=== PATIENT | female | born 1980 | race Caucasian/White ===

== ENCOUNTER 2016-04-02 17:02 | Emergency (ER) | payer BC, OTHER ==
--- NOTE | 2016-04-02 17:37 | EDDOCDS ---
Physician Documentation Name: Eva Bryant Age: 35 yrs Sex: Female : 1980 Arrival Date: 04/02/2016 Time: 17:02 Bed TR1 Private MD: NO PRIMARY PHYSICIAN, . Disposition: 04/02/16 17:23 Discharged to Home/Self Care. Impression: Cutaneous abscess of buttock - right medial. - Condition is Stable. - Discharge Instructions: Abscess, [id number]. - Medication Reconciliation, Local Pharmacy Hours form. - Follow up: Yovani Donohue DO; When: Call to arrange an appointment; Reason: Wound/Symptom Recheck, Further diagnostic work-up, Recheck today's complaints, Continuance of care. - Problem is an ongoing problem. - Symptoms are unchanged. Historical: - Allergies: no known allergies; - Home Meds: 1. none - PMHx: none; - PSHx: ; - Social history: Smoking status: Patient states was never smoker of tobacco. No barriers to communication noted, The patient speaks fluent Slovak, Speaks appropriately for age. - Family history: Not pertinent. - : The pt / caregiver states he / she is not on anticoagulants. Home medication list is obtained from the patient. - Exposure Risk Screening:: None identified. 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 7 in. (170.18 cm) (R); 17:04 Body Mass Index 40.72 (117.93 kg, 170.18 cm) dd6 Signatures: Dede Landaverde, RN RN Rodo Potter PA PA btw Sweeney, Julia, RN RN [email or web address] MTDD
--- NOTE | 2016-04-02 17:38 | EDDOCDS ---
Nurse's Notes [facility] Name: Eva Bryant Age: 35 yrs Sex: Female : 1980 Arrival Date: 04/02/2016 Time: 17:02 Bed TR1 Private MD: NO PRIMARY PHYSICIAN, . Diagnosis: Cutaneous abscess of buttock-right medial Presentation: 04/02 17:08 Presenting complaint: Patient states: sarah anal abscesses- was lanced by dr bartlett, srm given antibiotics but it returned a few weeks later. given more antibiotics. it returned on and PA from [facility] sent her here- abscess is draining on its own. Adult Sepsis Screening: The patient does not have new or worsening altered mentation. Patient's respiratory rate is less than 22. Systolic blood pressure is greater than 100. Patient has a qSOFA score of 0- Negative Sepsis Screen. Suicide/Homicide risk assessment- the patient denies having any suicidal and/or homicidal ideations and does not present with any other emotional, behavioral or mental health complaints. 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 Transition of care: Patient was received from [facility] [place]. 17:08 Acuity: PAOLA Level 4 srm 17:08 Method Of Arrival: Walkin/Carried/Asstd srm Triage Assessment: 17:10 General: Appears in no apparent distress, Behavior is appropriate for age, cooperative. srm Pain: Pain currently is 1 out of 10 on a pain scale. HIV screening NA for this visit Offered previously. 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 none - PMHx: none; - PSHx: ; - Social history: Smoking status: Patient states was never smoker of tobacco. No barriers to communication noted, The patient speaks fluent Greenlandic, Speaks appropriately for age. - Family history: Not pertinent. - : The pt / caregiver states he / she is not on anticoagulants. Home medication list is obtained from the patient. - Exposure Risk Screening:: None identified. Screenin:20 Screening information is obtained from the patient. Fall risk: No risks identified. srm Assistance ADL's: requires no assistance with activities of daily living. Abuse/DV Screen: The patient / caregiver reports he/she is: not in a situation that causes fear, pain or injury. Nutritional screening: No deficits noted. Advance Directives: There is no active DNR order. home support is adequate. Assessment: 17:20 General: Appears in no apparent distress, Behavior is appropriate for age, cooperative. srm Neurological: No deficits noted. Derm: open wound to inner aspect right buttock. scant serous drainage noted on ABD pad. Vital Signs: 17:04 BP 155 / 78; Pulse 97; Resp 18 S; Temp 98.0(O); Pulse Ox 100% on R/A; Weight 117.93 kg dd6 (R); Height 5 ft. 7 in. (170.18 cm) (R); 17:04 Body Mass Index 40.72 (117.93 kg, 170.18 cm) dd6 Vitals: 17:04 Log In Time: April 02, 2016 at 17:02. dd6 ED Course: 17:04 Patient visited by Lc Su PCA. dd6 17:04 NO PRIMARY PHYSICIAN, . is Private Physician. dd6 17:04 Patient moved to Waiting dd6 17:09 Patient moved to Pre RCE dd6 17:10 Triage Initiated srm 17:11 Patient moved to Triage 2 srm 17:12 Rodo Anaya PA is PHCP. btw 17:12 Zaynab Connolly MD is Attending Physician. btw 17:12 Patient visited by Rodo Anaya PA. btw 17:20 The patient / caregiver is instructed regarding the plan of care and ED course. Patient srm has correct armband on for positive identification. 17:22 Patient visited by Dede Landaverde RN. [facility] 17:22 Yovani Donohue DO is Referral Physician. btw 17:34 Patient moved to TR1 js15 17:34 No IV's were initiated during this patient's visit. No procedures done that require js15 assistance. Order Results: There are currently no results for this order. Outcome: 17:23 Discharge ordered by Provider. btw 17:34 Discharge Assessment: Patient awake, alert and oriented x 3. No cognitive and/or js15 functional deficits noted. Patient verbalized understanding of disposition instructions. patient administered narcotics - no. The following High Risk Discharge criteria are identified: None. Discharged to home ambulatory. Condition: unchanged. Discharge instructions given to patient, Instructed on discharge instructions, follow up and referral plans. Demonstrated understanding of instructions, Pt was receptive of discharge instructions/ teaching. No special radiology studies were completed. Property sent home with patient. 17:36 Patient left the ED. js15 Signatures: Dede Landaverde, RN RN Lc Mcfarlane, RETORT KILN BURNER RETORT KILN BURNER dd6 Rodo Anaya PA PA btw Sweeney, Julia,RN RN js15 MTDD
--- NOTE | 2016-04-04 18:36 | EDDOCDS ---
Physician Documentation [facility] Name: Eva Bryant Age: 35 yrs Sex: Female : 1980 Arrival Date: 04/02/2016 Time: 17:02 Bed TR1 Private MD: NO PRIMARY PHYSICIAN, . Disposition: 04/02/16 17:23 Discharged to Home/Self Care. Impression: Cutaneous abscess of buttock - right medial. - Condition is Stable. - Discharge Instructions: Abscess, [id number]. - Medication Reconciliation, Local Pharmacy Hours form. - Follow up: Yovani Donohue DO; When: Call to arrange an appointment; Reason: Wound/Symptom Recheck, Further diagnostic work-up, Recheck today's complaints, Continuance of care. - Problem is an ongoing problem. - Symptoms are unchanged. Historical: - Allergies: no known allergies; - Home Meds: 1. none - PMHx: none; - PSHx: ; - Social history: Smoking status: Patient states was never smoker of tobacco. No barriers to communication noted, The patient speaks fluent [place] Of [place], Speaks appropriately for age. - Family history: Not pertinent. - : The pt / caregiver states he / she is not on anticoagulants. Home medication list is obtained from the patient. - Exposure Risk Screening:: None identified. 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 7 in. (170.18 cm) (R); 17:04 Body Mass Index 40.72 (117.93 kg, 170.18 cm) dd6 MDM: 17:49 [facility] Payment Agreement was scanned into [employer]actually and attached to record. [facility] 17:49 Financial registration complete. [facility] 04/03 07:36 T-Sheet-- Draft Copy was scanned into [employer] and attached to record. [facility] Signatures: Dede Landaverde RN Rodo Bashir PA PA btw Sweeney, Julia, RN RN js15 Beck, Gabriela gjb Hoffert, Sarah seh The chart was reviewed and I authenticate all verbal orders and agree with the evaluation and treatment provided.Attachments: 04/02 17:49 [facility] Payment Agreement gjb 04/03 07:36 T-Sheet-- Draft Copy carisa Chart Complete MTDD
--- NOTE | 2016-04-04 18:37 | EDDOCDS ---
Nurse's Notes [facility] Name: Eva Bryant Age: 35 yrs Sex: Female : 1980 Arrival Date: 04/02/2016 Time: 17:02 Bed TR1 Private MD: NO PRIMARY PHYSICIAN, . Diagnosis: Cutaneous abscess of buttock-right medial Presentation: 04/02 17:08 Presenting complaint: Patient states: sarah anal abscesses- was lanced by dr bartlett, srm given antibiotics but it returned a few weeks later. given more antibiotics. it returned on and PA from [facility] sent her here- abscess is draining on its own. Adult Sepsis Screening: The patient does not have new or worsening altered mentation. Patient's respiratory rate is less than 22. Systolic blood pressure is greater than 100. Patient has a qSOFA score of 0- Negative Sepsis Screen. Suicide/Homicide risk assessment- the patient denies having any suicidal and/or homicidal ideations and does not present with any other emotional, behavioral or mental health complaints. 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 Transition of care: Patient was received from [facility] Urgent [facility]. 17:08 Acuity: PAOLA Level 4 srm 17:08 Method Of Arrival: Walkin/Carried/Asstd srm Triage Assessment: 17:10 General: Appears in no apparent distress, Behavior is appropriate for age, cooperative. srm Pain: Pain currently is 1 out of 10 on a pain scale. HIV screening NA for this visit Offered previously. 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 none - PMHx: none; - PSHx: ; - Social history: Smoking status: Patient states was never smoker of tobacco. No barriers to communication noted, The patient speaks fluent Croatian, Speaks appropriately for age. - Family history: Not pertinent. - : The pt / caregiver states he / she is not on anticoagulants. Home medication list is obtained from the patient. - Exposure Risk Screening:: None identified. Screenin:20 Screening information is obtained from the patient. Fall risk: No risks identified. srm Assistance ADL's: requires no assistance with activities of daily living. Abuse/DV Screen: The patient / caregiver reports he/she is: not in a situation that causes fear, pain or injury. Nutritional screening: No deficits noted. Advance Directives: There is no active DNR order. home support is adequate. Assessment: 17:20 General: Appears in no apparent distress, Behavior is appropriate for age, cooperative. srm Neurological: No deficits noted. Derm: open wound to inner aspect right buttock. scant serous drainage noted on ABD pad. Vital Signs: 17:04 BP 155 / 78; Pulse 97; Resp 18 S; Temp 98.0(O); Pulse Ox 100% on R/A; Weight 117.93 kg dd6 (R); Height 5 ft. 7 in. (170.18 cm) (R); 17:04 Body Mass Index 40.72 (117.93 kg, 170.18 cm) dd6 Vitals: 17:04 Log In Time: April 02, 2016 at 17:02. dd6 ED Course: 17:04 Patient visited by Lc Su PCA. dd6 17:04 NO PRIMARY PHYSICIAN, . is Private Physician. dd6 17:04 Patient moved to Waiting dd6 17:09 Patient moved to Pre RCE dd6 17:10 Triage Initiated srm 17:11 Patient moved to Triage 2 srm 17:12 Rodo Anaya PA is PHCP. btw 17:12 Zaynab Connolly MD is Attending Physician. btw 17:12 Patient visited by Rodo Anaya PA. btw 17:20 The patient / caregiver is instructed regarding the plan of care and ED course. Patient srm has correct armband on for positive identification. 17:22 Patient visited by Dede Landaverde RN. srm 17:22 Yovani Donohue DO is Referral Physician. btw 17:34 Patient moved to TR1 js15 17:34 No IV's were initiated during this patient's visit. No procedures done that require js15 assistance. 17:49 [facility] Payment Agreement was scanned into [employer] and attached to record. gjb 04/03 07:36 T-Sheet-- Draft Copy was scanned into [employer] and attached to record. [facility] Order Results: There are currently no results for this order. Outcome: 04/02 17:23 Discharge ordered by Provider. btw 17:34 Discharge Assessment: Patient awake, alert and oriented x 3. No cognitive and/or js15 functional deficits noted. Patient verbalized understanding of disposition instructions. patient administered narcotics - no. The following High Risk Discharge criteria are identified: None. Discharged to home ambulatory. Condition: unchanged. Discharge instructions given to patient, Instructed on discharge instructions, follow up and referral plans. Demonstrated understanding of instructions, Pt was receptive of discharge instructions/ teaching. No special radiology studies were completed. Property sent home with patient. 17:36 Patient left the ED. js15 Signatures: Dede Landaverde, RN RN Lc Mcfarlane, DOCTOR OF CHIROPRACTIC DOCTOR OF CHIROPRACTIC dd6 Rodo Anaya PA PA btw Sweeney, Julia,RN RN js15 Nasrin Segundo Sarah seh Chart Complete MTDKathryn
--- NOTE | 2016-04-04 18:37 | EDDOCDS ---
Physician Documentation [facility] Name: Eva Bryant Age: 35 yrs Sex: Female : 1980 Arrival Date: 04/02/2016 Time: 17:02 Bed TR1 Private MD: NO PRIMARY PHYSICIAN, . Disposition: 04/02/16 17:23 Discharged to Home/Self Care. Impression: Cutaneous abscess of buttock - right medial. - Condition is Stable. - Discharge Instructions: Abscess, [id number]. - Medication Reconciliation, Local Pharmacy Hours form. - Follow up: Yovani Donohue DO; When: Call to arrange an appointment; Reason: Wound/Symptom Recheck, Further diagnostic work-up, Recheck today's complaints, Continuance of care. - Problem is an ongoing problem. - Symptoms are unchanged. Historical: - Allergies: no known allergies; - Home Meds: 1. none - PMHx: none; - PSHx: ; - Social history: Smoking status: Patient states was never smoker of tobacco. No barriers to communication noted, The patient speaks fluent Azerbaijani, Speaks appropriately for age. - Family history: Not pertinent. - : The pt / caregiver states he / she is not on anticoagulants. Home medication list is obtained from the patient. - Exposure Risk Screening:: None identified. 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 7 in. (170.18 cm) (R); 17:04 Body Mass Index 40.72 (117.93 kg, 170.18 cm) dd6 MDM: 17:49 [facility] Payment Agreement was scanned into [employer] and attached to record. [facility] 17:49 Financial registration complete. [facility] 04/03 07:36 T-Sheet-- Draft Copy was scanned into [employer] and attached to record. [facility] Signatures: Dede Landaverde RN Rodo Bashir PA PA btw Sweeney, Julia, RN RN js15 Beck, Gabriela gjb Hoffert, Sarah seh The chart was reviewed and I authenticate all verbal orders and agree with the evaluation and treatment provided.Attachments: 04/02 17:49 [facility] Payment Agreement gjb 04/03 07:36 T-Sheet-- Draft Copy carisa Chart Complete MTDD
== END 2016-04-02 17:36 | disposition home or self-care (01) ==
LOC: M ED 17:02
DX: L02.31 Cutaneous abscess of buttock (principal)

== ENCOUNTER → 2016-04-30 | Day surgery (SDC) | payer BC, OTHER ==
[~2016-04-30] VITALS: Ht 170.2 cm; Wt 117.9 kg
[~2016-04-30] MED LIST: ALLE24TA8 PO; KETOROLAC 60 MG/2 ML VIAL (J1885) As Ordered ONE; LR 1,000 ML IV SCH; MIDAZOLAM INJ 2 MG/2 ML VIAL (J2250) As Ordered ONE; NORCO, ANEXSIA 5/325MG TABLET (HYDROcodone/ACETAMINOPHEN) PO PRN; ONDANSETRON 4MG/2ML VIAL (J2405) As Ordered ONE; ONDANSETRON 4MG/2ML VIAL (J2405) IV PRN; PERCOCET 5MG/325MG TAB As Ordered ONE; PERCOCET 5MG/325MG TAB PO PRN; fentaNYL 100 MCG/2 ML INJECTION (J3010) IV PRN
[2016-04-30 13:47] VITALS: BP 115/80
--- NOTE | 2016-05-01 12:24 | RO ---
DATE OF PROCEDURE: 04/30/2016 PREOPERATIVE DIAGNOSIS: Perirectal abscess. POSTOPERATIVE DIAGNOSIS: Perianal fistula. OPERATIVE PROCEDURE: Rectal exam under anesthesia with fistulotomy. SURGEON: Yovani Donohue DO SALES ADMINISTRATION SPECIALIST: None. ANESTHESIA: Spinal. COMPLICATIONS: None. INDICATIONS FOR PROCEDURE: The patient is a 36-year-old female presents with a recurrent abscess just to the right side of her rectum. It closes for a few days and then returns. Recommendation is to proceed with exam under anesthesia with exploration, possible abscess excision versus fistulotomy versus seton placement. Risks and benefits of the procedure not limited to but including bleeding, infection, need for further surgery and possible incontinence were discussed in detail with the patient. Informed consent was obtained and procedure was planned. DESCRIPTION OF PROCEDURE: The patient was brought back to operating room 8 after sufficient sedation. Spinal was placed. She was then placed in the prone jackknife position. The perirectal area was then sterilely prepped and draped with Betadine. Following that, a time out was done to confirm proper patient and proper procedure. Next a bivalve retractor was placed in the end rectum. The opening just to the right of the anus that was oozing purulent drainage was probed. The probe was passed from the outside and tract was found going all the way in just to the lip of the anus. It was very superficial. The probe was held in place, elevated away from the skin and using #15 blade scalpel, the tract was opened up completely from medial to lateral. Electrocautery was then used to cauterize the fistula tract as well as any bleeding. The wound was then covered with some Xeroform gauze and a 4x4. This was then covered with tape thus ending the procedure. The patient was then taken to post anesthesia care unit (PACU) in stable condition.
== END | disposition home or self-care (01) ==
LOC: M SDC 09:31
PROVIDERS: ATTEND Surgery
DX: K60.3 Anal fistula (principal)
CPT/HCPCS: 46270; J0690; J1885; J2250; J2405

== ENCOUNTER → 2016-09-15 | Outpatient (REF) | payer OTHER ==
[~2016-09-15] MED LIST changes: -KETOROLAC 60 MG/2 ML VIAL (J1885) As Ordered ONE; -LR 1,000 ML IV SCH; -MIDAZOLAM INJ 2 MG/2 ML VIAL (J2250) As Ordered ONE; -NORCO, ANEXSIA 5/325MG TABLET (HYDROcodone/ACETAMINOPHEN) PO PRN; -ONDANSETRON 4MG/2ML VIAL (J2405) As Ordered ONE; -ONDANSETRON 4MG/2ML VIAL (J2405) IV PRN; -PERCOCET 5MG/325MG TAB As Ordered ONE; -PERCOCET 5MG/325MG TAB PO PRN; -fentaNYL 100 MCG/2 ML INJECTION (J3010) IV PRN
== END ==
LOC: M LAB REF 13:35
PROVIDERS: ATTEND Nurse Practitioner Adult Health
DX: E03.9 Hypothyroidism, unspecified (principal)

== ENCOUNTER → 2016-09-30 | Outpatient (REF) | payer OTHER | LOC: M LAB REF 13:23 | PROVIDERS: ATTEND Surgery | DX: D22.5 Melanocytic nevi of trunk (principal) ==

== ENCOUNTER → 2018-01-16 | Outpatient (CLI) | payer BC, OTHER ==
[~2018-01-16] MED LIST changes: -ALLE24TA8 PO; +METHACHOLINE KIT (J7674) INH
== END ==
LOC: M CARPUL 08:55
DX: J45.909 Unspecified asthma, uncomplicated (principal)
CPT/HCPCS: J7674

== ENCOUNTER 2018-01-26 20:09 | Emergency (ER) | payer BC, OTHER ==
[2018-01-26] MEDS: CLINDAMYCIN 150 MG CAP PO (20:39)
== END 2018-01-26 20:46 | disposition home or self-care (01) ==
LOC: M ED 20:09
DX: K04.7 Periapical abscess without sinus (principal); J45.909 Unspecified asthma, uncomplicated
CPT/HCPCS: 99282

== ENCOUNTER → 2018-04-11 | Outpatient (REF) | payer OTHER ==
[~2018-04-11] MED LIST changes: +ALLE24TA8 PO; +AUGM875T28 PO; +CLEO300C2 PO; +IBUP-1022 PO; -METHACHOLINE KIT (J7674) INH; +SYMB16INH INH
[2018-04-11 20:50] LABS: INFLUENZA A AMPLIFICATION POSITIVE (NEGATIVE); INFLUENZA B AMPLIFICATION NEGATIVE (NEGATIVE)
== END ==
LOC: M LAB REF 17:28
PROVIDERS: ATTEND Nurse Practitioner Family
DX: R05 Cough (principal)

== ENCOUNTER → 2018-08-31 | Outpatient (CLI) | payer OTHER ==
[~2018-08-31] MED LIST changes: +ALLE24TA7 PO; -ALLE24TA8 PO; +CIPR-249 PO; +METR-265 PO; +PROAAER10 INH
[2018-08-31 20:13] LABS: BASO % 0.4 % (0.0-1.0); EOS # 0.1 10^3/uL (0.0-0.50); EOS % 0.8 % (0.0-3.0); HEMATOCRIT 39.4 % (36.0-47.0); HEMOGLOBIN 13.6 g/dl (12.0-15.5); LYMPH # 0.8 10^3/uL (1.5-4.5); LYMPH % 7.2 % (24.0-44.0); MEAN CORPUSCULAR HGB CONC 34.5 g/dl (32.0-36.5); MEAN CORPUSCULAR VOLUME 89.7 fl (80.0-96.0); MONO % 8.9 % (0.0-5.0); NEUTROPHILS # 9.4 10^3/uL (1.8-7.7); NEUTROPHILS % 82.2 % (36.0-66.0); PLATELET COUNT, AUTOMATED 236 10^3/uL (150-450); RED BLOOD COUNT 4.39 10^6/uL (4.00-5.40); WHITE BLOOD COUNT 11.4 10^3/uL (4.0-10.0)
[2018-08-31 20:22] LABS: ALBUMIN 3.6 GM/DL (3.2-5.2); ALT/SGPT 18 U/L (12-78); BILIRUBIN,TOTAL 0.6 MG/DL (0.2-1.0); BLOOD UREA NITROGEN 10 MG/DL (7-18); CALCIUM LEVEL 8.8 MG/DL (8.5-10.1); CARBON DIOXIDE LEVEL 24 MEQ/L (21-32); CHLORIDE LEVEL 105 MEQ/L (98-107); CREATININE FOR GFR 1.04 MG/DL (0.55-1.30); GLOMERULAR FILTRATION RATE > 60.0 (>60); GLUCOSE, FASTING 86 MG/DL (70-100); POTASSIUM SERUM 3.4 MEQ/L (3.5-5.1); SODIUM LEVEL 137 MEQ/L (136-145); TOTAL PROTEIN 7.6 GM/DL (6.4-8.2)
== END ==
LOC: M WUC 15:49
PROVIDERS: ATTEND Physician Assistant
DX: R50.9 Fever, unspecified (principal); R10.9 Unspecified abdominal pain

== ENCOUNTER 2018-09-03 13:33 | Inpatient (IN) | payer BC, OTHER ==
[~2018-09-03] VITALS: Ht 170.2 cm; Wt 124.9 kg
[~2018-09-03 13:33] MED LIST changes: -CIPR-249 PO; -METR-265 PO; -PROAAER10 INH
[2018-09-03] MEDS ORDERED: NS 1,000 ML IV ONE (14:15)
--- NOTE | 2018-09-03 14:37 | REP ---
Clinical: Fever . Comparison: 01/25/2011 . Technique: PA and lateral. Findings: The mediastinum and cardiac silhouette are normal. The lung irby are clear and without acute consolidation, effusion, or pneumothorax. The skeletal structures are intact and normal. Impression: 1. No acute cardiopulmonary process. Electronically Signed by Brandon Cagle MD 09/03/2018 02:28 P
[2018-09-03] MEDS ORDERED: ACETAMINOPHEN 325 MG TAB PO ONE (14:45)
[2018-09-03] MEDS ORDERED: KCL 10MEQ/100ML SWI (KRUN) 10 MEQ in APPROPRIATE DILUENT 1 EA IV ONE (15:00)
[2018-09-03 15:02] LABS: BASO % 0.3 % (0.0-1.0); EOS # 0.1 10^3/uL (0.0-0.50); EOS % 0.9 % (0.0-3.0); HEMATOCRIT 37.8 % (36.0-47.0); HEMOGLOBIN 12.9 g/dl (12.0-15.5); LYMPH # 1.2 10^3/uL (1.5-4.5); LYMPH % 10.4 % (24.0-44.0); MEAN CORPUSCULAR HEMOGLOBIN 29.3 pg (27.0-33.0); MEAN CORPUSCULAR HGB CONC 34.1 g/dl (32.0-36.5); MEAN CORPUSCULAR VOLUME 85.7 fl (80.0-96.0); MONO # 1.1 10^3/uL (0.0-0.8); MONO % 9.6 % (0.0-5.0); NEUTROPHILS # 8.9 10^3/uL (1.8-7.7); NEUTROPHILS % 78.3 % (36.0-66.0); PLATELET COUNT, AUTOMATED 260 10^3/uL (150-450); RED BLOOD COUNT 4.41 10^6/uL (4.00-5.40); WHITE BLOOD COUNT 11.4 10^3/uL (4.0-10.0)
[2018-09-03] MEDS ORDERED: POTASSIUM CHLORIDE 10 MEQ SR TABLET PO ONE (15:15)
[2018-09-03 15:39] LABS: ALBUMIN 3.1 GM/DL (3.2-5.2); BILIRUBIN,DIRECT 0.3 MG/DL (0.0-0.2); BILIRUBIN,TOTAL 0.5 MG/DL (0.2-1.0); C REACTIVE PROTEIN QUANTITATIV 20.9 MG/DL (0.00-0.30); CALCIUM LEVEL 8.4 MG/DL (8.5-10.1); CREATININE FOR GFR 1.15 MG/DL (0.55-1.30); ERYTHROCYTE SEDIMENTATION RATE 74 mm/hr (0-20); GLOMERULAR FILTRATION RATE 55.9 (>60); POTASSIUM SERUM 2.9 MEQ/L (3.5-5.1)
[2018-09-03] MEDS ORDERED: SYMB16INH INH (17:08)
[2018-09-03] MEDS ORDERED: PROAAER10 INH (17:08)
[2018-09-03] MEDS ORDERED: AZITHROMYCIN 250 MG TAB PO ONE (18:30)
--- NOTE | 2018-09-03 19:24 | HPEPDOC ---
General Date of Admission Date of Service: Sep 03, 2018 Chief Complaint The patient is a 38-year-old female admitted with a reason for visit of Abd Pain/Vomiting/Fever. History of Present Illness 38f with hx of asthma, family hx of UC, p/w nearly a month of diarrhea. She describes it as watery without blood or mucous. She denies nausea and vomiting, but has not been eating much because it seems to worsen her symptoms. She denies abdominal pain. She has had severe headaches and the past two weeks has been having fevers, chills, and sweats. She reports fevers as high as 104. She did have a 10 day course of augmentin for a dental abscess that completed two days ago, but she is certain that the diarrhea started before that, She believes it started before august 11. A full 10pt ROS was performed and was negative excluding what is documented above Home Medications Scheduled Budesonide/Formoterol (Symbicort 160-4.5 Mcg Inhaler) 6 Gm Hfa.aer.ad, 2 PUFF INH BID, (Reported) Scheduled PRN Albuterol Sulfate (Proair Hfa) 8.5 Gm Hfa.aer.ad, 2 PUFF INH QID PRN for SHORTNESS OF BREATH, (Reported) Ibuprofen (Ibuprofen) 600 Mg Tab, 600 MG PO Q6H PRN for PAIN, (Reported) Allergies Coded Allergies: No Known Allergies (Verified Allergy, Unknown, 09/03/18) Past Medical History Medical History asthma Family History sister with UC Social History * Smoker: Denies Alcohol: Denies Drugs: denies A-FIB/CHADSVASC A-FIB History Current/History of A-Fib/PAF?: No Current PO Anticoag Therapy: No Age/Risk Factor Scoring CHADSVASC: CHADSVASC Response (Comments) Value Age Risk Factor Age < 65 years old 0 Gender Risk Factor Female 1 Hx of CHF No 0 Hx of HTN No 0 Hx of Stroke/TIA/or VTE No 0 Hx of Diabetes No 0 Hx of Vascular Disease No 0 Total 1 Treatment Treatment ordered: NONE Physical Examination General Exam: Positive: Alert, Cooperative, No Acute Distress Eye Exam: Positive: PERRLA, Conjunctiva & lids normal, EOMI; Negative: Sclera icteric ENT Exam: Positive: Atraumatic, Mucous membr. moist/pink, Pharynx Normal Neck Exam: Positive: Supple; Negative: JVD, thyromegaly Chest Exam: Positive: Clear to auscultation, Normal air movement Heart Exam: Positive: Rate Normal, Regular Rhythm, Normal S1, Normal S2; Negative: Murmurs, Rubs Abdomen Exam: Positive: Normal bowel sounds, BS Hyperactive, Soft; Negative: Tenderness, Hepatospenomegaly Extremity Exam: Positive: Normal pulses; Negative: Clubbing, Cyanosis, Edema Skin Exam: Positive: Nl turgor and temperature; Negative: Breakdown, Lesion Neuro Exam: Positive: Normal Gait, Normal Speech, Cranial Nerves 3-12 NL, Reflexes 2+ Psych Exam: Positive: Mental status NL, Mood NL, Oriented x 3 Vital Signs Vital Signs Date Time Temp Pulse Resp B/P (MAP) Pulse Ox O2 Delivery O2 Flow Rate FiO2 09/03/18 17:03 99.2 97 20 122/71 (88) 94 Room Air Laboratory Data Labs 24H Laboratory Tests 2 09/03/18 14:13: Immature Granulocyte % (Auto) 0.5, White Blood Count 11.4H, Red Blood Count 4.41, Hemoglobin 12.9, Hematocrit 37.8, Mean Corpuscular Volume 85.7, Mean Corpuscular Hemoglobin 29.3, Mean Corpuscular Hemoglobin Concent 34.1, Red Cell Distribution Width 13.2, Platelet Count 260, Neutrophils (%) (Auto) 78.3H, Lymphocytes (%) (Auto) 10.4L, Monocytes (%) (Auto) 9.6H, Eosinophils (%) (Auto) 0.9, Basophils (%) (Auto) 0.3, Neutrophils # (Auto) 8.9H, Lymphocytes # (Auto) 1.2L, Monocytes # (Auto) 1.1H, Eosinophils # (Auto) 0.1, Basophils # (Auto) 0.0, Nucleated Red Blood Cells % (auto) 0.0, Erythrocyte Sedimentation Rate 74H, Urine Color GISELA, Urine Appearance HAZY, Urine pH 6.0, Urine Specific Verner 1.023, Urine Protein 2+H, Urine Glucose (UA) NEGATIVE, Urine Ketones NEGATIVE, Urine Blood NEGATIVE, Urine Nitrite NEGATIVE, Urine Bilirubin NEGATIVE, Urine Urobilinogen 0.2, Urine Leukocyte Esterase TRACEH, Urine WBC (Auto) 11H, Urine RBC (Auto) 3, Urine Hyaline Casts (Auto) 0, Urine Bacteria (Auto) 1+H, Urine Squamous Epithelial Cells 11, Urine Mucus (Auto) SMALL, Urine Sperm (Auto) , Anion Gap 9, Glomerular Filtration Rate 55.9L, Calcium Level 8.4L, Aspartate Amino Transf (AST/SGOT) 15, Alanine Aminotransferase (ALT/SGPT) 19, Alkaline Phosphatase 98, Total Bilirubin 0.5, Direct Bilirubin 0.3H, C-Reactive Protein, Quantitative 20.90H, Total Protein 7.0, Albumin 3.1L, Albumin/Globulin Ratio 0.79L, Lipase 42L 09/03/18 14:26: POC Glucose (Misc Panel) 105, POC Sodium (Misc Panel) 140, POC Potassium (Misc Panel) 2.7*L, POC Chloride (Misc Panel) 100, POC Total CO2 (Misc Panel) 23.0, POC Blood Urea Nitrogen (Misc Panel 6L, POC Ionized Calcium (Misc Panel) 4.3L, POC Creatinine (Misc Panel) 1.1, POC Hematocrit (Misc Panel) 38.0 09/03/18 18:25: CBC/BMP Laboratory Tests 09/03/18 14:13 Red Blood Count 4.41, Mean Corpuscular Volume 85.7, Mean Corpuscular Hemoglobin 29.3, Mean Corpuscular Hemoglobin Concent 34.1, Red Cell Distribution Width 13.2, Neutrophils (%) (Auto) 78.3 H, Lymphocytes (%) (Auto) 10.4 L, Monocytes (%) (Auto) 9.6 H, Eosinophils (%) (Auto) 0.9, Basophils (%) (Auto) 0.3, Neutrophils # (Auto) 8.9 H, Lymphocytes # (Auto) 1.2 L, Monocytes # (Auto) 1.1 H, Eosinophils # (Auto) 0.1, Basophils # (Auto) 0.0 Microbiology Microbiology 09/03/18 Blood Culture, Received Pending 09/03/18 Blood Culture, Received Pending 09/03/18 Stool Lactoferrin, Received Pending 09/03/18 Gastrointestinal Tract Panel (PCR), Received Pending 09/03/18 Urine Culture, Received Pending Assessment/Plan 38f p/w prolonged diarrhea and hypokalemia diarrhea having high fevers gi panel in process given family history and timeline there is concern for IBD will get ct A&P hypokalemia due to diarrhea repleted in ED will start fluids with KCL asthma continue symbicort prn albuterol Plan / VTE VTE Prophylaxis Ordered?: No VTE Exclusion Mechanical Proph: Low Risk for VTE VTE Exclusion Pharmacological: At Low Risk for VTE CARI SALAZAR MD Sep 03, 2018 19:24
[2018-09-03] MEDS: GASTROGRAFIN SOLUTION 30ML PO SCH ×2 (19:59→20:37)
[2018-09-03 20:05] VITALS: BP 124/77
[2018-09-03] MEDS ORDERED: ISOVUE-370 76% 100ML VIAL (Q9967) As Ordered ONE (20:23)
[2018-09-03] MEDS: KCL 40MEQ IN D5/0.45NS 1000ML 1,000 ML IV SCH (20:28)
[2018-09-03 20:48] LABS: BLOOD UREA NITROGEN 8 MG/DL (7-18); CARBON DIOXIDE LEVEL 26 MEQ/L (21-32); CHLORIDE LEVEL 107 MEQ/L (98-107); CREATININE FOR GFR 0.99 MG/DL (0.55-1.30); GLOMERULAR FILTRATION RATE > 60.0 (>60); GLUCOSE, FASTING 88 MG/DL (70-100); POTASSIUM SERUM 3.1 MEQ/L (3.5-5.1); SODIUM LEVEL 142 MEQ/L (136-145)
[2018-09-03] MEDS: SYMBICORT 160/4.5MCG INHALER 6GM INH SCH (21:00)
--- NOTE | 2018-09-03 21:53 | REP ---
Clinical: Abdominal pain and diarrhea. Technique: Axial contrast enhanced images from the lung bases to the pubic symphysis using oral (per protocol) and 100 ml Isovue 370 intravenous contrast material with coronal and sagittal re-formations. Findings: Fluid filled nondilated loops of small and large bowel are appreciated and consistent with the given history of diarrhea and possible enteritis. No focal inflammatory changes appreciated. Terminal ileum and appendix are normal. Mildly prominent lymph nodes in the mid mesentery and right lower quadrant raise the possibility of acute mesenteric adenitis. Sigmoid diverticula noted without acute diverticulitis. Liver, spleen, pancreas, gallbladder, bilateral adrenal glands and kidneys are normal. Pelvis demonstrates collapsed normal bladder and age-appropriate uterus/adnexa. No pelvic fluid or ascites. No free air. No adenopathy. 1 cm fat containing inguinal hernia. Abdominal aorta and vasculature without aneurysm or dissection. Musculoskeletal structures are intact. Lung bases are clear. Visualized heart and pericardium normal. Impression: 1. Fluid-filled loops of small large bowel consistent with diarrhea and possible enterocolitis. Mildly prominent lymph nodes in the mesentery and right lower quadrant also raise the possibility of associated mesenteric adenitis. 2. Few sigmoid diverticula without acute diverticulitis. Electronically Signed by Brandon Cagle MD 09/03/2018 09:44 P
[2018-09-04] VITALS: BP 133/75
[2018-09-04 04:00] VITALS: BP 119/77
[2018-09-04] MEDS: KCL 40MEQ IN D5/0.45NS 1000ML 1,000 ML IV SCH ×2 (05:48→19:24)
[2018-09-04 06:31] LABS: HEMATOCRIT 32.4 % (36.0-47.0); MEAN CORPUSCULAR HEMOGLOBIN 29.9 pg (27.0-33.0); MEAN CORPUSCULAR HGB CONC 33.6 g/dl (32.0-36.5); MEAN CORPUSCULAR VOLUME 88.8 fl (80.0-96.0); PLATELET COUNT, AUTOMATED 216 10^3/uL (150-450); RED BLOOD COUNT 3.65 10^6/uL (4.00-5.40); WHITE BLOOD COUNT 7.6 10^3/uL (4.0-10.0)
[2018-09-04 06:38] LABS: HEMOGLOBIN 10.9 g/dl (12.0-15.5)
[2018-09-04 07:06] LABS: ALBUMIN 2.6 GM/DL (3.2-5.2); ALT/SGPT 17 U/L (12-78); BILIRUBIN,TOTAL 0.5 MG/DL (0.2-1.0); BLOOD UREA NITROGEN 5 MG/DL (7-18); CALCIUM LEVEL 7.8 MG/DL (8.5-10.1); CARBON DIOXIDE LEVEL 25 MEQ/L (21-32); CHLORIDE LEVEL 108 MEQ/L (98-107); CREATININE FOR GFR 0.88 MG/DL (0.55-1.30); GLOMERULAR FILTRATION RATE > 60.0 (>60); GLUCOSE, FASTING 102 MG/DL (70-100); POTASSIUM SERUM 3.2 MEQ/L (3.5-5.1); SODIUM LEVEL 139 MEQ/L (136-145); TOTAL PROTEIN 6.6 GM/DL (6.4-8.2)
[2018-09-04] MEDS: SYMBICORT 160/4.5MCG INHALER 6GM INH SCH ×2 (07:24→20:28)
[2018-09-04 08:00] VITALS: BP 132/74
[2018-09-04] MEDS: ACETAMINOPHEN TAB 650MG DOSE (2X325MG) PO PRN ×2 (08:16)
[2018-09-04] MEDS: CIPROFLOXACIN 400 MG in APPROPRIATE DILUENT 1 EA IV SCH (11:14)
[2018-09-04] MEDS: metroNIDAZOLE 500 MG in APPROPRIATE DILUENT 1 EA IV SCH ×2 (12:27→20:45)
[2018-09-04 16:00] VITALS: BP 104/63
--- NOTE | 2018-09-04 16:51 | IPNPDOC ---
Subjective Date Seen The patient was seen on 09/04/18. Subjective Chief Complaint/HPI 38f with hx of asthma, family hx of UC, p/w nearly a month of diarrhea. Still having diarrhea, fevers. no pain A full 10pt ROS was performed and was negative excluding what is documented above Objective Physical Examination General Exam: Positive: Alert, Cooperative, No Acute Distress Eye Exam: Positive: PERRLA, Conjunctiva & lids normal, EOMI; Negative: Sclera icteric ENT Exam: Positive: Atraumatic, Mucous membr. moist/pink, Pharynx Normal Neck Exam: Positive: Supple; Negative: JVD, thyromegaly Chest Exam: Positive: Clear to auscultation, Normal air movement Heart Exam: Positive: Rate Normal, Regular Rhythm, Normal S1, Normal S2; Negative: Murmurs, Rubs Abdomen Exam: Positive: Normal bowel sounds, BS Hyperactive, Soft; Negative: Tenderness, Hepatospenomegaly Extremity Exam: Positive: Normal pulses; Negative: Clubbing, Cyanosis, Edema Skin Exam: Positive: Nl turgor and temperature; Negative: Breakdown, Lesion Neuro Exam: Positive: Normal Gait, Normal Speech, Cranial Nerves 3-12 NL, Reflexes 2+ Psych Exam: Positive: Mental status NL, Mood NL, Oriented x 3 Assessment /Plan Assessment 38f p/w prolonged diarrhea and hypokalemia diarrhea ct without focal inflammation gi panel negative will start cipro/flagyl for presumed infectious enterocolitis gi not available currently if pt improves will dc with outpt follow up otherwise will get gi eval when available hypokalemia due to diarrhea on fluids with kcl asthma continue symbicort prn albuterol Plan/VTE VTE Prophylaxis Ordered?: No VTE Exclusion Mechanical Proph: Low Risk for VTE VTE Exclusion Pharmacological: At Low Risk for VTE VS, I&O, 24H, Fishbone Vital Signs/I&O Vital Signs Date Time Temp Pulse Resp B/P (MAP) Pulse Ox O2 Delivery O2 Flow Rate FiO2 09/04/18 08:00 97.5 79 18 132/74 (93) 98 09/03/18 19:42 Room Air I&O- Last 24 Hours up to 6 AM 09/04/18 06:00 Intake Total 2520 ml Output Total 630 ml Balance 1890 ml Laboratory Data 24H LABS Laboratory Tests 2 09/03/18 18:25: 09/03/18 20:16: Anion Gap 9, Glomerular Filtration Rate > 60.0, Blood Urea Nitrogen 8, Creatinine 0.99, Sodium Level 142, Potassium Level 3.1L, Chloride Level 107, Carbon Dioxide Level 26, Calcium Level 8.0L 09/04/18 06:18: Anion Gap 6L, Glomerular Filtration Rate > 60.0, Blood Urea Nitrogen 5L, Creatinine 0.88, Sodium Level 139, Potassium Level 3.2L, Chloride Level 108H, Carbon Dioxide Level 25, Calcium Level 7.8L, Nucleated Red Blood Cells % (auto) 0.0, Aspartate Amino Transf (AST/SGOT) 11, Alanine Aminotransferase (ALT/SGPT) 17, Alkaline Phosphatase 76, Total Bilirubin 0.5, Total Protein 6.6, Albumin 2.6L, Albumin/Globulin Ratio 0.65L CBC/BMP Laboratory Tests 09/03/18 20:16 Calcium Level 8.0 L 09/04/18 06:18 Calcium Level 7.8 L, Red Blood Count 3.65 L, Mean Corpuscular Volume 88.8, Mean Corpuscular Hemoglobin 29.9, Mean Corpuscular Hemoglobin Concent 33.6, Red Cell Distribution Width 13.2, Aspartate Amino Transf (AST/SGOT) 11, Alanine Aminotransferase (ALT/SGPT) 17, Alkaline Phosphatase 76, Total Bilirubin 0.5, Total Protein 6.6, Albumin 2.6 L Microbiology Microbiology 09/03/18 Blood Culture, Received Pending 09/03/18 Blood Culture - Preliminary, Resulted No growth after 24 hours . All specim... 09/03/18 Stool Lactoferrin - Final, Complete 09/03/18 Gastrointestinal Tract Panel (PCR) - Final, Complete 09/03/18 Urine Culture - Final, Complete CARI SALAZAR MD Sep 04, 2018 16:51
[2018-09-04 20:00] VITALS: BP 117/75
[2018-09-05] MEDS: CIPROFLOXACIN 400 MG in APPROPRIATE DILUENT 1 EA IV SCH ×2 (01:56→12:12)
[2018-09-05 04:00] VITALS: BP 132/80
[2018-09-05] MEDS: metroNIDAZOLE 500 MG in APPROPRIATE DILUENT 1 EA IV SCH ×2 (04:20→13:25)
[2018-09-05 06:21] LABS: BASO % 0.5 % (0.0-1.0); EOS # 0.4 10^3/uL (0.0-0.50); EOS % 6.3 % (0.0-3.0); HEMATOCRIT 33.5 % (36.0-47.0); HEMOGLOBIN 11.1 g/dl (12.0-15.5); LYMPH # 1.2 10^3/uL (1.5-4.5); LYMPH % 21.7 % (24.0-44.0); MEAN CORPUSCULAR HEMOGLOBIN 29.1 pg (27.0-33.0); MEAN CORPUSCULAR HGB CONC 33.1 g/dl (32.0-36.5); MEAN CORPUSCULAR VOLUME 87.9 fl (80.0-96.0); MONO # 0.5 10^3/uL (0.0-0.8); MONO % 8.7 % (0.0-5.0); NEUTROPHILS # 3.5 10^3/uL (1.8-7.7); NEUTROPHILS % 62.6 % (36.0-66.0); PLATELET COUNT, AUTOMATED 234 10^3/uL (150-450); RED BLOOD COUNT 3.81 10^6/uL (4.00-5.40); WHITE BLOOD COUNT 5.5 10^3/uL (4.0-10.0)
[2018-09-05 06:50] LABS: BLOOD UREA NITROGEN 3 MG/DL (7-18); CALCIUM LEVEL 7.5 MG/DL (8.5-10.1); CARBON DIOXIDE LEVEL 24 MEQ/L (21-32); CHLORIDE LEVEL 110 MEQ/L (98-107); CREATININE FOR GFR 0.76 MG/DL (0.55-1.30); GLOMERULAR FILTRATION RATE > 60.0 (>60); GLUCOSE, FASTING 102 MG/DL (70-100); MAGNESIUM LEVEL 2.1 MG/DL (1.8-2.4); POTASSIUM SERUM 3.6 MEQ/L (3.5-5.1); SODIUM LEVEL 143 MEQ/L (136-145)
[2018-09-05] MEDS: SYMBICORT 160/4.5MCG INHALER 6GM INH SCH (07:28)
[2018-09-05 08:00] VITALS: BP 123/73
[2018-09-05] MEDS: KCL 40MEQ IN D5/0.45NS 1000ML 1,000 ML IV SCH (08:17)
[2018-09-05] MEDS ORDERED: CIPR-249 PO (15:10)
[2018-09-05] MEDS ORDERED: METR-265 PO (15:10)
--- NOTE | 2018-09-06 14:03 | DS.PDOC ---
Discharge Summary General Date of Admission Sep 03, 2018 at 19:04 Date of Discharge 7.. Discharge Summary PROCEDURES PERFORMED DURING STAY: [None]. ADMITTING DIAGNOSES: 1. diarrhea 2. fever DISCHARGE DIAGNOSES: 1. presumed infectious diarrhea COMPLICATIONS/CHIEF COMPLAINT: Diarrhea;Hypokalemia. HISTORY OF PRESENT ILLNESS: 38f with hx of asthma, family hx of UC, p/w nearly a month of diarrhea. She describes it as watery without blood or mucous. She denies nausea and vomiting, but has not been eating much because it seems to worsen her symptoms. She denies abdominal pain. She has had severe headaches and the past two weeks has been having fevers, chills, and sweats. She reports fevers as high as 104. She did have a 10 day course of augmentin for a dental abscess that completed two days ago, but she is certain that the diarrhea started before that, She believes it started before august 11. HOSPITAL COURSE: She was admitted. She was hydrated and her electrolytes were repleted. Stool testing for gi panel ruled out c diff and several other p athogens. A ct abd pelvis was performed and without acute pathology. She was started on empiric abx and her fevers resolved. Her diarrhea improved. She was discharged to complete a course of abx and f/u with gi as an outpatient. DISCHARGE MEDICATIONS: Please see below. ALLERGIES: Please see below. PHYSICAL EXAMINATION ON DISCHARGE: VITAL SIGNS: Please see below. General Exam: Positive: Alert, Cooperative, No Acute Distress Eye Exam: Positive: PERRLA, Conjunctiva & lids normal, EOMI; Negative: Sclera icteric ENT Exam: Positive: Atraumatic, Mucous membr. moist/pink, Pharynx Normal Neck Exam: Positive: Supple; Negative: JVD, thyromegaly Chest Exam: Positive: Clear to auscultation, Normal air movement Heart Exam: Positive: Rate Normal, Regular Rhythm, Normal S1, Normal S2; Negative: Murmurs, Rubs Abdomen Exam: Positive: Normal bowel sounds, BS Hyperactive, Soft; Negative: Tenderness, Hepatospenomegaly Extremity Exam: Positive: Normal pulses; Negative: Clubbing, Cyanosis, Edema Skin Exam: Positive: Nl turgor and temperature; Negative: Breakdown, Lesion Neuro Exam: Positive: Normal Gait, Normal Speech, Cranial Nerves 3-12 NL, Reflexes 2+ Psych Exam: Positive: Mental status NL, Mood NL, Oriented x 3 LABORATORY DATA: Please see below. ACTIVITY: [As tolerated]. DIET: regular DISPOSITION: Home, Self-Care. DISCHARGE CONDITION: [Stable]. Vital Signs/I&Os Vital Signs Date Time Temp Pulse Resp B/P (MAP) Pulse Ox O2 Delivery O2 Flow Rate FiO2 09/05/18 08:00 97.5 81 12 123/73 (90) 96 09/03/18 19:42 Room Air I&O- Last 24 Hours up to 6 AM 09/06/18 06:00 Intake Total 1240 ml Output Total 500 ml Balance 740 ml Microbiology Microbiology 09/03/18 Blood Culture - Preliminary, Resulted No Growth after 48 hours. All Specime... 09/03/18 Blood Culture - Preliminary, Resulted No Growth after 48 hours. All Specime... 09/03/18 Stool Lactoferrin - Final, Complete 09/03/18 Gastrointestinal Tract Panel (PCR) - Final, Complete 09/03/18 Urine Culture - Final, Complete Discharge Medications Scheduled Budesonide/Formoterol (Symbicort 160-4.5 Mcg Inhaler) 6 Gm Hfa.aer.ad, 2 PUFF INH BID, (Reported) Ciprofloxacin HCl (Cipro) 500 Mg Tablet, 1 TAB PO BID Metronidazole (Metronidazole) 500 Mg Tablet, 1 TAB PO TID Scheduled PRN Albuterol Sulfate (Proair Hfa) 8.5 Gm Hfa.aer.ad, 2 PUFF INH QID PRN for SHORTNESS OF BREATH, (Reported) Ibuprofen (Ibuprofen) 600 Mg Tab, 600 MG PO Q6H PRN for PAIN, (Reported) Allergies Coded Allergies: No Known Allergies (Verified Allergy, Unknown, 09/03/18) CARI SALAZAR MD Sep 06, 2018 14:03
== END 2018-09-05 16:15 | disposition home or self-care (01) | DRG 249 ==
LOC: M ED 13:33 → M ED INP 19:04 → M PED 20:05
PROVIDERS: ADMIT Hospitalist; ATTEND Hospitalist
DX: A09 Infectious gastroenteritis and colitis, unspecified (principal); E87.6 Hypokalemia; J45.909 Unspecified asthma, uncomplicated; Z79.899 Other long term (current) drug therapy; Z83.79 Family history of other diseases of the digestive system

== ENCOUNTER 2018-11-28 07:41 | Day surgery (SDC) | payer BC, OTHER ==
[~2018-11-28] VITALS: Ht 170.2 cm; Wt 122.5 kg
[~2018-11-28 07:41] MED LIST changes: +CIPR-249 PO; +LIDOCAINE 2% INJ 100 MG/5 ML SDV (FOR ANES.) As Ordered ONE; +METR-265 PO; +PROAAER10 INH; +PROPOFOL 200 MG/20 ML VIAL As Ordered ONE
[2018-11-28] MEDS ORDERED: NS 1,000 ML IV ONE ×2 (08:00→09:00)
--- NOTE | 2018-11-28 09:14 | ROOR ---
Patient Name: Eva Bryant Procedure Date: 11/28/2018 8:44 AM Date of : 1980 Age: 38 Room: [facility] Gender: Female Note Status: Finalized Procedure: Colonoscopy Indications: Chronic diarrhea Providers: Duane Isaac MD Referring MD: Moon Mata NP Requesting Provider: Medicines: Monitored Anesthesia Care Complications: No immediate complications. Procedure: Pre-Anesthesia Assessment: - Prior to the procedure, a History and Physical was performed, and patient medications and allergies were reviewed. The patient is competent. The risks and benefits of the procedure and the sedation options and risks were discussed with the patient. All questions were answered and informed consent was obtained. Patient identification and proposed procedure were verified by the physician, the nurse and the anesthesiologist in the procedure room. Mental Status Examination: alert and oriented. Airway Examination: normal oropharyngeal airway and neck mobility. Respiratory Examination: clear to auscultation. CV Examination: normal. Prophylactic Antibiotics: The patient does not require prophylactic antibiotics. Prior Anticoagulants: The patient has taken no previous anticoagulant or antiplatelet agents. ASA Grade Assessment: II - A patient with mild systemic disease. After reviewing the risks and benefits, the patient was deemed in satisfactory condition to undergo the procedure. The anesthesia plan was to use monitored anesthesia care (MAC). Immediately prior to administration of medications, the patient was re-assessed for adequacy to receive sedatives. The heart rate, respiratory rate, oxygen saturations, blood pressure, adequacy of pulmonary ventilation, and response to care were monitored throughout the procedure. The physical status of the patient was re-assessed after the procedure. The Colonoscope was introduced through the anus and advanced to the terminal ileum, with identification of the appendiceal orifice and IC valve. The colonoscopy was performed without difficulty. The patient tolerated the procedure well. The quality of the bowel preparation was good. The terminal ileum, ileocecal valve, appendiceal orifice, and rectum were photographed. Scope insertion time was 2 minutes. Scope withdrawal time was 8 minutes. The total duration of the procedure was 10 minutes. Findings: The perianal and digital rectal examinations were normal. The terminal ileum appeared normal. Normal mucosa was found in the entire colon. Biopsies for histology were taken with a cold forceps from the right colon, left colon, transverse colon and rectosigmoid colon for evaluation of microscopic colitis. Verification of patient identification for the specimen was done by the physician and nurse using the patient's name, date and medical record number. Estimated blood loss was minimal. Non-bleeding external and internal hemorrhoids were found during retroflexion. The hemorrhoids were medium-sized and Grade II (internal hemorrhoids that prolapse but reduce spontaneously). Impression: - The examined portion of the ileum was normal. - Normal mucosa in the entire examined colon. Biopsied. - Non-bleeding external and internal hemorrhoids. Recommendation: - Patient has a contact number available for emergencies. The signs and symptoms of potential delayed complications were discussed with the patient. Return to normal activities tomorrow. Written discharge instructions were provided to the patient. - High fiber diet. - Continue present medications. - Await pathology results. - Repeat colonoscopy at age 49 for screening purposes. - Telephone GI clinic for pathology results in 2 weeks. - Return to primary care physician. Duane Isaac MD Duane Isaac MD 11/28/2018 9:14:28 AM Electronically signed by Duane Isaac MD Number of Addenda: 0 Note Initiated On: 11/28/2018 8:44 AM Estimated Blood Loss: Estimated blood loss was minimal.
[2018-11-28 09:30] VITALS: BP 155/93
== END 2018-11-28 09:41 | disposition home or self-care (01) ==
LOC: M OPP 07:41
PROVIDERS: ATTEND Internal Medicine Gastroenterology
DX: K64.1 Second degree hemorrhoids (principal); K52.9 Noninfective gastroenteritis and colitis, unspecified; Z91.89 Other specified personal risk factors, not elsewhere classified

== ENCOUNTER → 2020-03-15 | Outpatient (CLI) | payer SELFPAY ==
[~2020-03-15] MED LIST changes: -LIDOCAINE 2% INJ 100 MG/5 ML SDV (FOR ANES.) As Ordered ONE; -PROPOFOL 200 MG/20 ML VIAL As Ordered ONE
== END ==
LOC: M LABSMTC 08:38
PROVIDERS: ATTEND Pediatrics
DX: Z20.822 Contact with and (suspected) exposure to COVID-19 (principal)

== ENCOUNTER → 2020-05-27 | Outpatient (CLI) | payer SELFPAY, OTHER | LOC: M LABSMTC 14:15 | PROVIDERS: ATTEND Pediatrics | DX: Z20.822 Contact with and (suspected) exposure to COVID-19 (principal) ==

== ENCOUNTER → 2021-03-10 | Outpatient (REF) | payer BC, OTHER | LOC: M LAB REF 11:14 | PROVIDERS: ATTEND Nurse Practitioner Adult Health | DX: E11.65 Type 2 diabetes mellitus with hyperglycemia (principal) ==

== ENCOUNTER → 2023-02-07 | Outpatient (REF) | payer OTHER ==
[2023-02-07 18:12] LABS: PERCENT SATURATION 17.4 % (13.2-45.0)
[2023-02-07 18:16] LABS: FERRITIN 9.4 NG/ML (7.3-270.7)
[2023-02-08 14:40] LABS: HEMOGLOBIN A1c 8.6 % (4.0-6.0)
== END ==
LOC: M LAB REF 16:18
PROVIDERS: ATTEND Nurse Practitioner Adult Health
DX: E83.110 Hereditary hemochromatosis (principal)

== ENCOUNTER → 2024-10-10 | Outpatient (CLI) | payer OTHER | LOC: M WUC 10:58 | PROVIDERS: ATTEND Nurse Practitioner Adult Health | DX: M43.06 Spondylolysis, lumbar region (principal) ==

== ENCOUNTER → 2024-11-01 | Outpatient (CLI) | payer BC ==
[~2024-11-01] MED LIST changes: -IBUP-1022 PO; +IBUP600T42 PO
== END ==
LOC: M PLAIMG 14:59
PROVIDERS: ATTEND Nurse Practitioner Adult Health
DX: M51.17 Intervertebral disc disorders with radiculopathy, lumbosacral region (principal); M48.07 Spinal stenosis, lumbosacral region; M47.816 Spondylosis without myelopathy or radiculopathy, lumbar region